=== PATIENT | female | born 1940 | race Caucasian/White ===

== ENCOUNTER → 2016-07-25 | Outpatient (REF) | payer OTHER, MEDICAID ==
[2016-07-25 19:10] LABS: BASO % 0.5 % (0.0-1.0); EOS # 0.2 K/mm3 (0.0-0.50); LARGE UNSTAINED CELL # 0.1 K/mm3 (0.0-0.4); LARGE UNSTAINED CELL % 1.6 % (0.0-4.0); LYMPH % 25.8 % (24.0-44.0); MEAN CORPUSCULAR HEMOGLOBIN 29.9 pg (27.0-33.0); MEAN CORPUSCULAR HGB CONC 32.3 g/dl (32.0-36.5); MEAN CORPUSCULAR VOLUME 92.5 fl (80.0-96.0); MONO # 0.3 K/mm3 (0.0-0.8); MONO % 4.6 % (0.0-5.0); NEUTROPHILS # 4.8 K/mm3 (1.8-7.7); NEUTROPHILS % 65.5 % (36.0-66.0); PLATELET COUNT, AUTOMATED 319 k/mm3 (150-450); RED CELL DISTRIBUTION WIDTH 12.7 % (11.5-14.5); WHITE BLOOD COUNT 7.3 K/mm3 (4.0-10.0)
[2016-07-25 19:50] LABS: ALT/SGPT 22 U/L (12-78); CREATININE FOR GFR 0.76 MG/DL (0.55-1.02); GLOMERULAR FILTRATION RATE > 60.0 (>39)
[2016-07-25 20:47] LABS: ERYTHROCYTE SEDIMENTATION RATE 12 mm/hr (0-30)
== END ==
LOC: M LABDRAW1 17:17 → M SMT 17:17
PROVIDERS: ATTEND Internal Medicine Rheumatology
DX: M35.1 Other overlap syndromes (principal); Z79.899 Other long term (current) drug therapy

== ENCOUNTER → 2019-06-01 | Outpatient (CLI) | payer MEDICARE, MEDICAID ==
--- NOTE | 2019-06-02 10:49 | REP ---
PET/CT: HISTORY: Diagnosing enlarged lymph nodes. COMPARISONS: May 03, 2019 CT study of the abdomen from [facility]. TECHNIQUE: 60 minutes following the intravenous injection of a 7.87 mCi dose of F-18 FDG, three-dimensional PET scintigraphy is acquired from the skull base to the proximal thighs. Triplanar noncontrast CT scanning is acquired through the same anatomic range for attenuation correction, and image registration with scan parameters optimized to minimize radiation exposure to the patient. PET scintigraphy and CT datasets were fused and displayed on a workstation with multiplanar and projection display capability. PET/CT FINDINGS: There is a large air cyst with some adjacent atelectasis and fibrosis in the right lower lobe of the lung. The head and neck soft tissues are unremarkable. There is hypermetabolic adenopathy noted above and below the diaphragm. Maximum standard uptake value ranges in these lymph nodes from 2.5 to 8.54. The most avid lymph nodes are in the upper abdomen, corresponding with the CT findings. Maximum SUV value in a portacaval lymph node to the right of midline in the upper abdomen is 7.13. A right pericaval lymph node shows activity at 7.41. Left periaortic nodes are noted with maximum SUV values at 8.56 and 8.54. There are mildly hypermetabolic lymph nodes in both axilla, the left internal mammary lymph node region, the portacaval and periaortic retroperitoneum, pretracheal and precarinal lymph nodes, and there are small relatively low avidity lymph nodes in each groin. IMPRESSION: Hypermetabolic [place] uptake above and below the diaphragms, as above. Most notably in the retroperitoneum and portacaval lymph node region. Lymphoproliferative disease must be suspected. Electronically Signed by César Morgan MD 06/02/2019 05:49 P
== END ==
LOC: M PLARAD 11:25
PROVIDERS: ATTEND Family Medicine
DX: R59.0 Localized enlarged lymph nodes (principal); Z80.9 Family history of malignant neoplasm, unspecified; R10.11 Right upper quadrant pain
CPT/HCPCS: 78815; A9552

== ENCOUNTER → 2019-11-12 | Outpatient (CLI) | payer MEDICARE, MEDICAID ==
[~2019-11-12] MED LIST: ACET-683 PO; ASPI81TA85 PO; ATIV1TAB7 PO; COZA50TA PO; FLON1SPR; HYDR200T3 PO; MULTCAP PO; OMEP-218 PO; OYST1TAB PO; REST0.05 OS; SIMV40TA20 PO; SYMB16INH INH; SYNT125T PO; TOPR50TA PO; VENTAER INH
--- NOTE | 2019-11-12 12:20 | REP ---
REASON: Followup. COMPARISON: 08/25/2019 from an outside institution. Nonenlarged lymph nodes are again seen in the mediastinum and pulmonary elijah. The imaged upper abdomen is within normal limits and the mediastinal structures are within normal limits for the patient's age. There are no pleural or pericardial effusions. Evaluation of the lung schulz again shows hyperexpansion with pleural blebs and parenchymal bulla status quo. The patchy end reticulonodular densities seen scattered throughout the lung schulz have all improved. Residual noncalcified pulmonary nodules are seen scattered throughout the lung schulz bilaterally. These are too numerous to count and individually assess. This is seen in conjunction with scattered calcified granulomas. No single nodule has increased in size from the prior exam and no nodule has developed since the last exam. 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 IMPRESSION: Chronic lung field changes as described above. There is on revised Fleischner Society criteria recommendation for followup of such chronic findings. Followup should be based on clinical assessment. Electronically Signed by David Uriarte DO 11/12/2019 12:26 P
== END ==
LOC: M RAD 10:57
PROVIDERS: ATTEND Internal Medicine Pulmonary Disease
DX: R91.8 Other nonspecific abnormal finding of lung field (principal); J43.9 Emphysema, unspecified

== ENCOUNTER → 2019-12-14 | Outpatient (CLI) | payer MEDICARE, MEDICAID ==
[~2019-12-14] MED LIST changes: +ATIV1TAB10 PO
--- NOTE | 2019-12-14 17:39 | REP ---
PET/CT: HISTORY: Chronic lymphocytic lymphoma. CLL. Initial staging. COMPARISONS: Comparison PET/CT study, June 01, 2019 TECHNIQUE: 52 minutes following the intravenous injection of a 8.43 mCi dose of F-18 FDG, three-dimensional PET scintigraphy is acquired from the skull base to the proximal thighs. Triplanar noncontrast CT scanning is acquired through the same anatomic range for attenuation correction, and image registration with scan parameters optimized to minimize radiation exposure to the patient. PET scintigraphy and CT datasets were fused and displayed on a workstation with multiplanar and projection display capability. PET/CT FINDINGS: Fibrotic changes are seen in the lungs and a large air cyst is seen in the right lower lobe, as before. No hypermetabolic uptake is seen in the lung parenchyma. There are subtle nodular changes in the right upper lobe posteriorly. The surrounding ground-glass opacity suggests inflammatory changes. No hypermetabolic uptake associated with this. Head and neck soft tissues show no evidence of adenopathy or other abnormal hypermetabolic uptake. No abnormal mediastinal or hilar hypermetabolic uptake is seen. The previously noted small paraesophageal lymph node is no longer apparent. No axillary adenopathy is appreciated. There is hypermetabolic adenopathy in the retroperitoneum including the celiac axis and aortocaval and portacaval and periaortic lymph nodes. Maximum standard uptake value in these hypermetabolic nodes ranges from 3.44 to 8.60. There is left external iliac [place] hypermetabolic uptake, 4.69. Mildly hypermetabolic uptake is seen in two left inguinal lymph nodes, maximum SUV value 3.94. Nonhypermetabolic but visible uptake is seen in a right inguinal lymph node, 2.44. No other abnormal hypermetabolic uptake is seen. IMPRESSION: Hypermetabolic adenopathy similar to the prior study except that there is no definite adenopathy above the diaphragm today. Electronically Signed by César Morgan MD 12/15/2019 10:52 A
== END ==
LOC: M PLARAD 14:16
PROVIDERS: ATTEND Internal Medicine Medical Oncology
DX: C91.10 Chronic lymphocytic leukemia of B-cell type not having achieved remission (principal)
CPT/HCPCS: 78815; A9552

== ENCOUNTER → 2020-05-01 | Outpatient (REF) | payer MEDICARE, MEDICAID ==
[~2020-05-01] MED LIST changes: +ASPI81CH33 PO; -ASPI81TA85 PO; +ASPI81TA86 PO
== END ==
LOC: M LAB REF 15:20
PROVIDERS: ATTEND Otolaryngology
DX: R22.1 Localized swelling, mass and lump, neck (principal)

== ENCOUNTER → 2022-01-07 | Outpatient (CLI) | payer MEDICARE, MEDICAID ==
[~2022-01-07] MED LIST changes: +ALBU2.5V10 NEB; +BUDE0.5S6 NEB; +COVI100V IM; +FERR325T3 PO; +FURO20TA2 PO; +KP F1200 PO; +METO1TAB32 PO; +MULT-90 PO; +OMEP-173 PO; -OMEP-218 PO
== END ==
LOC: M PLARAD 09:42
PROVIDERS: ATTEND Internal Medicine Medical Oncology
DX: C91.10 Chronic lymphocytic leukemia of B-cell type not having achieved remission (principal); I65.23 Occlusion and stenosis of bilateral carotid arteries; J43.9 Emphysema, unspecified; I70.0 Atherosclerosis of aorta; I25.10 Atherosclerotic heart disease of native coronary artery without angina pectoris
CPT/HCPCS: 78815; A9552

== ENCOUNTER → 2022-07-22 | Outpatient (CLI) | payer MEDICARE, MEDICAID ==
[~2022-07-22] MED LIST changes: +LEVO88CA PO
== END ==
LOC: M PLARAD 14:54
PROVIDERS: ATTEND Internal Medicine Medical Oncology
DX: C91.10 Chronic lymphocytic leukemia of B-cell type not having achieved remission (principal); I65.23 Occlusion and stenosis of bilateral carotid arteries; J43.9 Emphysema, unspecified; I70.0 Atherosclerosis of aorta; I25.10 Atherosclerotic heart disease of native coronary artery without angina pectoris
CPT/HCPCS: 78815; A9552

== ENCOUNTER → 2024-07-27 | Outpatient (CLI) | payer MEDICARE, MEDICAID ==
[~2024-07-27] MED LIST changes: +CEPH500C PO; -COZA50TA PO; -HYDR200T3 PO; +HYDR200T46 PO; +LOSA-528 PO; +MELO7.5T35 PO; +PRED10TA2 PO; +SPIR-10 PO
== END ==
LOC: M PLARAD 08:56
PROVIDERS: ATTEND Internal Medicine Hematology & Oncology
DX: C85.98 Non-Hodgkin lymphoma, unspecified, lymph nodes of multiple sites (principal)
CPT/HCPCS: 78815; A9552

== ENCOUNTER → 2025-03-29 | Outpatient (CLI) | payer MEDICARE, MEDICAID ==
[~2025-03-29] MED LIST changes: +ACAL100T PO; +CEPH250T PO; +FAMO40TA3 PO; -LEVO88CA PO; +LEVO88CA2 PO; +ZANU80CA PO
== END ==
LOC: M PLARAD 12:13
DX: C85.98 Non-Hodgkin lymphoma, unspecified, lymph nodes of multiple sites (principal)
CPT/HCPCS: 78815; A9552